=== PATIENT | female | born 1985 | race Caucasian/White ===

== ENCOUNTER → 2022-12-19 | Outpatient (CLI) | payer BC, SELFPAY ==
[2022-12-22 00:06] LABS: Chlamydia By Nucleic Acid AMP Negative (Negative)
[2022-12-22 17:25] LABS: Gonococcus By Nucleic Acid AMP Negative (Negative)
== END | disposition home or self-care (01) ==
PROVIDERS: Visit Provider Obstetrics & Gynecology
DX: Z34.90 Encounter for supervision of normal pregnancy, unspecified, unspecified trimester (principal)
CPT/HCPCS: 87086; 87491; 87591

== ENCOUNTER → 2022-12-26 | Outpatient (CLI) | payer BC, SELFPAY ==
[2022-12-26 11:11] LABS: Absolute Lymphocyte Count 2.33 X10^3/uL (0.83-4.51); Absolute Neutrophil Count 5.6 X10^3/uL (2.0-7.7); Basophil# 0.04 X10^3/uL; Basophil% 0.5 % (0-1); Eosinophil# 0.07 X10^3/uL; Eosinophils% 0.8 % (0-5); Hematocrit 39.4 % (37-47); Hemoglobin 13.3 g/dL (12.0-15.0); Lymphocyte # 2.33 X10^3/ul (0.83-4.51); Lymphocyte % 26.8 % (19-41); Mean Corp Hgb Conc 33.8 g/dL (32-36); Mean Corpuscular Volume 91.8 fL (81-99); Mean Platelet Vol. 9.5 fl (6.2-12.0); Monocyte# 0.63 X10^3/uL; Monocyte% 7.2 % (0-10); NRBC Flagged by Analyzer 0 % (0-5); Neutrophil # 5.58 X10^3/uL (2.7-7.7); Platelet Count 285 K/mm3 (150-450); RBC Distribution Width CV 12.7 % (11.6-14.6); RBC Distribution Width SD 42.3 fl (35.1-43.9); Red Blood Count 4.29 M/mm3 (4.2-5.4); White Blood Count 8.7 K/mm3 (4.4-11.0)
[2022-12-26 12:16] LABS: HIV - WCH Non-Reactive (Nonreactive); Hepatitis B Surface Antigen Non-Reactive (Nonreactive); Hepatitis C Antibody Non-Reactive (Nonreactive); Rubella IgG Reactive (Nonreactive); Syphilis Antibodies Non-reactive
== END | disposition home or self-care (01) ==
LOC: PAVLAB 10:28
PROVIDERS: Referring Provider Obstetrics & Gynecology; Visit Provider Obstetrics & Gynecology
DX: Z34.90 Encounter for supervision of normal pregnancy, unspecified, unspecified trimester (principal)
CPT/HCPCS: 36415; 85025; 86703; 86762; 86780; 86803; 86850; 86900; 86901; 87340

== ENCOUNTER → 2023-04-10 | Outpatient (CLI) | payer BC, SELFPAY ==
[2023-04-10 08:55] LABS: Absolute Lymphocyte Count 1.72 X10^3/uL (0.83-4.51); Absolute Neutrophil Count 6.8 X10^3/uL (2.0-7.7); Basophil# 0.06 X10^3/uL; Basophil% 0.6 % (0-1); Eosinophil# 0.12 X10^3/uL; Eosinophils% 1.3 % (0-5); Hematocrit 36.7 % (37-47); Hemoglobin 12.2 g/dL (12.0-15.0); Lymphocyte # 1.72 X10^3/ul (0.83-4.51); Lymphocyte % 18.2 % (19-41); Mean Corp Hgb Conc 33.2 g/dL (32-36); Mean Corpuscular Hgb 31.6 pg (27.0-32.0); Mean Corpuscular Volume 95.1 fL (81-99); Mean Platelet Vol. 9.1 fl (6.2-12.0); Monocyte% 6.3 % (0-10); NRBC Flagged by Analyzer 0 % (0-5); Neutrophil # 6.75 X10^3/uL (2.7-7.7); Neutrophil % 71.4 % (47-70); Platelet Count 239 K/mm3 (150-450); RBC Distribution Width CV 12.6 % (11.6-14.6); RBC Distribution Width SD 43.1 fl (35.1-43.9); Red Blood Count 3.86 M/mm3 (4.2-5.4); White Blood Count 9.5 K/mm3 (4.4-11.0)
[2023-04-10 09:07] LABS: Glucose Challenge Gest 1H 50g 143 mg/dL (70-140)
[2023-04-10 09:50] LABS: HIV - WCH Non-Reactive (Nonreactive); Syphilis Antibodies Non-reactive
== END | disposition home or self-care (01) ==
LOC: PAVLAB 08:34
PROVIDERS: Referring Provider Registered Nurse; Visit Provider Registered Nurse
DX: O09.90 Supervision of high risk pregnancy, unspecified, unspecified trimester (principal); Z13.1 Encounter for screening for diabetes mellitus; Z3A.00 Weeks of gestation of pregnancy not specified
CPT/HCPCS: 36415; 82950; 85025; 86703; 86780

== ENCOUNTER → 2023-04-13 | Outpatient (CLI) | payer BC, SELFPAY ==
[2023-04-13 08:08] LABS: Glucose GTT-Gestation. Fasting 84 mg/dL (<105)
[2023-04-13 08:52] LABS: Glucose GTT-Gestational 1 Hr 161 mg/dL (<190)
[2023-04-13 09:55] LABS: Glucose GTT-Gestational 2 Hr 127 mg/dL (<165)
[2023-04-13 11:36] LABS: Glucose GTT-Gestational 3 Hr 127 L (<145)
== END | disposition home or self-care (01) ==
LOC: LAB 07:13
PROVIDERS: Referring Provider Registered Nurse; Visit Provider Registered Nurse
DX: Z13.1 Encounter for screening for diabetes mellitus (principal)
CPT/HCPCS: 36415; 82951; 82952

== ENCOUNTER → 2023-05-30 | Outpatient (CLI) | payer BC, SELFPAY ==
--- NOTE | 2023-05-30 10:50 | US_ITS ---
EXAM: US , LIMITED CLINICAL INDICATION: growth TECHNIQUE: Real-time limited ultrasound of the maternal uterus with image documentation. COMPARISON: No relevant prior studies available. FINDINGS: FETUS: Single live intrauterine . GESTATIONAL AGE: Gestational age by ultrasound: 32 weeks 5 days, MELISSA 07/20/2023. Gestational age by LMP: 33 weeks 1 day, MELISSA 07/17/2023. EFW: Estimated weight: 2202 g, 51st percentile. BPD: 8.3 cm, 33 weeks 3 days. HC: 29.8 cm, 33 weeks 0 days. AC: 29.6 cm, 33 weeks 4 days. FL: 6.4 cm, 32 weeks 6 days. POSITION: Cephalic position. HEART RATE: heart rate: 136 bpm. PLACENTA: The placenta is anterior with no previa or other abnormality. AMNIOTIC FLUID: REENA measures 15 cm, within normal limits. CERVIX: Cervix measures 4 cm in length. US/OB Limited With Biometrics IMPRESSION: Single live intrauterine measuring 32 weeks 5 days with no acute abnormality identified. Electronically Signed: Gregg Thapa MD at 2:31 EDT ,
--- NOTE | 2023-06-22 18:59 | US_ITS ---
STUDY: SECOND AND THIRD TRIMESTER OBSTETRICAL ULTRASOUND - LIMITED REASON FOR EXAM: Female, 37 years old GROWTH, REENA PRIOR ULTRASOUND: May 30, 2023. TECHNIQUE: Transabdominal pelvic ultrasound. TECHNICAL QUALITY: Adequate. FINDINGS: There is a single intrauterine fetus. The fetus is in a cephalic presentation. There is demonstrated cardiac activity with a heart rate of 145 bpm. There is a normal amniotic fluid volume. The largest amniotic fluid pocket measures 4.8 cm. The amniotic fluid index (REENA) is 13.8 cm. The placenta is anterior. There are Grade 2 placental changes. The cervix measures 6.5 cm in length. BIOMETRY: BPD: 8.9 cm: 36 weeks, 0 days HC: 31.82: 35 weeks, 6 days AC: 32.98: 36 weeks, 6 days FL: 7.02: 36 weeks, 0 days Age by LMP: 35 weeks, 6 days. MELISSA by LMP: 07/21/2023. age by current US: 36 weeks, 0 days. MELISSA by current US: 07/20/2023. Estimated weight: 2987 grams, +/- 448 grams, 71 percentile. US/OB Limited With Biometrics IMPRESSION: Single live intrauterine gestation as above. Electronically Signed: Kevin Byrnes MD at 21:12 EDT ,
== END | disposition home or self-care (01) ==
LOC: US 10:48
PROVIDERS: Referring Provider Obstetrics & Gynecology; Visit Provider Obstetrics & Gynecology
DX: O99.810 Abnormal glucose complicating pregnancy (principal); Z3A.00 Weeks of gestation of pregnancy not specified
CPT/HCPCS: 76816

== ENCOUNTER → 2023-06-22 | Outpatient (CLI) | payer BC, SELFPAY | END | disposition home or self-care (01) | LOC: US 07-05 11:45 | PROVIDERS: Referring Provider Obstetrics & Gynecology; Visit Provider Obstetrics & Gynecology | DX: D64.89 Other specified anemias (principal) | CPT/HCPCS: 76816 ==

== ENCOUNTER → 2023-06-28 | Outpatient (CLI) | payer BC, SELFPAY | END | disposition home or self-care (01) | LOC: LABSPEC 10:33 | PROVIDERS: Referring Provider Obstetrics & Gynecology; Visit Provider Obstetrics & Gynecology | DX: O09.90 Supervision of high risk pregnancy, unspecified, unspecified trimester (principal); Z3A.00 Weeks of gestation of pregnancy not specified | CPT/HCPCS: 87081 ==

== ENCOUNTER 2023-07-05 10:00 | Outpatient (CLI) | payer BC, SELFPAY ==
[2023-07-05] VITALS (7 sets, daily range): BP systolic 119–147; BP diastolic 67–77; PULSE 84–101; TEMP 37.4; O2SAT 98; BMI 33.5
[2023-07-05 10:44] LABS: Hematocrit 37.3 % (37-47); Hemoglobin 12.3 g/dL (12.0-15.0); Mean Corpuscular Hgb 30.1 pg (27.0-32.0); Mean Corpuscular Volume 91.4 fL (81-99); Mean Platelet Vol. 9.9 fl (6.2-12.0); Platelet Count 235 K/mm3 (150-450); RBC Distribution Width SD 42.9 fl (35.1-43.9); Red Blood Count 4.08 M/mm3 (4.2-5.4); White Blood Count 10.1 K/mm3 (4.4-11.0)
[2023-07-05 10:58] LABS: Protein, Urine (Random) 7.2 mg/dL (<11.9); Protein:Creat Ratio 149 mg/g CRE (0-200)
[2023-07-05 11:10] LABS: AST(SGOT) 15 U/L (15-37); Alanine Aminotransfer ALT/SGPT 12 U/L (13-56); Creatinine, Serum 0.44 mg/dL (0.55-1.02); EST Glomerular Filtration Rate 171 mL/min (>60); Est Glom Filt Rate - Afr Amer 207 mL/min (>60); Estimated Creatinine Clearance 146.22 ml/min; Uric Acid 3.8 mg/dL (2.6-6.0)
--- NOTE | 2023-07-05 21:28 | OB.TRI.PN_ITS ---
Progress Notes Date of Service: 07/05/23 Progress Note: Patient presents for triage evaluation secondary to elevated bps in the office FHT: 140 Moderate variability reactive no decelerations category I tracing [place]: no regular Contractions Assessment and plan: elevate dbps but repeats WNL, labs WNL Reactive NST, reassuring maternal and status patient discharged to home to follow-up as scheduled. See problem list details for additional plan information. Laboratory Studies: Laboratory Tests 07/05/23 07/05/23 Range/Units 10:35 10:10 WBC 10.1 (4.4-11.0) K/mm3 RBC 4.08 L (4.2-5.4) M/mm3 Hgb 12.3 (12.0-15.0) g/dL Hct 37.3 (37-47) % MCV 91.4 (81-99) fL MCH 30.1 (27.0-32.0) pg MCHC 33.0 (32-36) g/dL RDW Std Deviation 42.9 (35.1-43.9) fl RDW Coeff of Mckenzie 13.0 (11.6-14.6) % Plt Count 235 (150-450) K/mm3 MPV 9.9 (6.2-12.0) fl Creatinine 0.44 L (0.55-1.02) mg/dL Estim Creat Clear Calc 146.22 ml/min Est GFR (MDRD) Af Amer 207 (>60) mL/min Est GFR (MDRD) Non-Af 171 (>60) mL/min Uric Acid 3.8 (2.6-6.0) mg/dL AST 15 (15-37) U/L ALT 12 L (13-56) U/L U Random Total Protein 7.2 (<11.9) mg/dL Urine Creatinine 48.30 (NO RANGE EST.) mg/dL Protein/Creatinin Ratio 149 (0-200) mg/g CRE Charges/Coding Procedures Urinary/Genital 52xxx-59xxx: 61813-16 non-stress test Interp
== END 2023-07-05 11:50 | disposition home or self-care (01) ==
LOC: WPOUT 10:06 → WP 10:06
PROVIDERS: Referring Provider Obstetrics & Gynecology; Visit Provider Obstetrics & Gynecology
DX: O26.899 Other specified pregnancy related conditions, unspecified trimester (principal); R03.0 Elevated blood-pressure reading, without diagnosis of hypertension; Z3A.00 Weeks of gestation of pregnancy not specified
CPT/HCPCS: 36415; 59025; 59050; 82565; 82570; 84156; 84450; 84460; 84550; 85027; 99221; G0378

== ENCOUNTER 2023-07-17 05:29 | Inpatient (IN) | payer BC, SELFPAY ==
[2023-07-17] VITALS (18 sets, daily range): BP systolic 101–138; BP diastolic 56–83; PULSE 74–117; RESP 12–16; TEMP 36.4–37.4; O2SAT 95–100; BMI 33.3
[2023-07-17] MEDS: Lactated Ringers 1,000 ML 999 ML IV (06:00)
[2023-07-17 06:11] LABS: Absolute Lymphocyte Count 2.25 X10^3/uL (0.83-4.51); Basophil# 0.07 X10^3/uL; Basophil% 0.8 % (0-1); Eosinophil# 0.09 X10^3/uL; Hematocrit 37.4 % (37-47); Hemoglobin 12.4 g/dL (12.0-15.0); Lymphocyte # 2.25 X10^3/ul (0.83-4.51); Lymphocyte % 24.4 % (19-41); Mean Corp Hgb Conc 33.2 g/dL (32-36); Mean Corpuscular Hgb 30.3 pg (27.0-32.0); Mean Corpuscular Volume 91.4 fL (81-99); Mean Platelet Vol. 10.2 fl (6.2-12.0); Monocyte% 6.5 % (0-10); NRBC Flagged by Analyzer 0 % (0-5); Neutrophil # 6.03 X10^3/uL (2.7-7.7); Neutrophil % 65.5 % (47-70); Platelet Count 229 K/mm3 (150-450); RBC Distribution Width CV 13.3 % (11.6-14.6); RBC Distribution Width SD 43.8 fl (35.1-43.9); Red Blood Count 4.09 M/mm3 (4.2-5.4); White Blood Count 9.2 K/mm3 (4.4-11.0)
[2023-07-17] MEDS: Acetaminophen 500 MG Tablet 1000 MG PO ×3 (06:13→18:08)
[2023-07-17] MEDS: Lactated Ringers 1,000 ML 150 ML IV (07:04)
[2023-07-17] MEDS: Sodium Citrate/Citric Acid 30 ML UDC PO (07:09)
--- NOTE | 2023-07-17 07:16 | HP.PCM.OB_ITS ---
HPI - General General Date of Admission: 07/17/23 HPI Narrative MONISHA FRASER, is a 37 y/o @ 39 weeks 3 days who presents to L&D for a scheduled repeat section. Maternal Data Information MELISSA Calculator Estimated Delivery Date Method Current WG Current Estimate 07/21/23 LMP (Certain) 39w 3d Other Estimates 07/21/23 Ultrasound #1 39w 3d PFSH PFSH Medical History Dysmenorrhea Family history of breast cancer Menorrhagia with regular cycle Home Medications multivitamin no.47-iron fum 27 mg-folate no.1 1 mg-dha 300 mg capsule (PNV-DHA) 1 cap PO DAILY 12/12/22 [History Last Taken 07/16/23] Allergy/AdvReac Type Severity Reaction Status Date / Time No Known Allergies Allergy Verified 07/17/23 05:31 Family History Grandmother Breast cancer Aunt Breast cancer Surgical History Hx of breast augmentation S/P Social History adopted: No household members: spouse and children number of children: 3 current occupation: [employer] pets and animals: Yes pets and animals: dog(s) history of recent travel: Yes ([place]) out of state: Yes out of country: No sexually active: Yes Smoking Status: Former smoker quit date: 11/09/22 alcohol intake: never substance use type: does not use well-balanced diet: daily or most days caffeine: No eating out: 1-3 times/week during the past year weight has: increased > 10 lbs what type of physical activity do you participate in: none florentino/rastafari: [employer]ab[employer]ist seatbelt use: always do you feel safe at home: Yes additional social history: - Walt History 4 Elective abortions Hx Para 3 Spontaneous abortions Hx # Term Pregnancies Ectopic pregnancies Hx # Pregnancies Multiple births # of living children 3 Past Pregnancies Del. Date Name GA/Weeks Outcome Route Bth Weight Gen Labor Lgth Anesthesia Del Locatn Provider FOB 09/11/07 Sunny 06/04/11 Reena 06/27/19 Kemi Visit Details Expected Delivery Route/Plan LTCS Labor Preferences- CB/BF classes: no labor support person: Walt labor intervention preferences: [] pain management options preferred: LTCS cut cord/dad catch: [] : yes PP control planned: discussed discussed possible routes of delivery and associated risks: [] special requests: [] Plans Covid status: unvaccinated Flu vaccine: uvaccinated Tdap vaccine: declines Rhogam: NA LARC form signed: yes Problem list reviewed and updated with the most current plan of care details and appropriate orders placed. Relevant counseling for the gestational age provided. Continue routine care and follow up unless otherwise noted in visit notes/problem list details OB Flowsheet Initial Weight: Not Recorded Date -?-?-?-?-?-?-?-?-?-?-?-?- EGA Weight BP Urine Prot -?-?-?-?-?-?-?-?-?-?-?-?- Glucose FHR FuHt Pres Dilation -?-?-?-?-?-?-?-?-?-?-?-?- Effaced St Visit Note 12/19/22 -?-?-?-?-?-?-?-?-?-?-?-?- 9w 3d 145 lb 4 oz 143/86 -?-?-?-?-?-?-?-?-?-?-?-?- 163 -?-?-?-?-?-?-?-?-?-?-?-?- JV- single live iup measuring 9 weeks 3d and consistent with LMP. declines NIPT 01/17/23 -?-?-?-?-?-?-?-?-?-?-?-?- 13w 4d 148 lb 4 oz 135/90 Nega tive -?-?-?-?-?-?-?-?-?-?-?-?- Negative 156 -?-?-?-?-?-?-?-?-?-?-?-?- JV- interval cesilia wth noted. pt states that she did not know over 35 puts her at increased risks in . She is tearful today and states that she does not know what to do about genetic testing. She is looking up pictures of NT on line often and stressing out. She will call with her decision for testing. otherwise will have 18 week growth scan with MFM. 02/14/23 -?-?-?-?-?-?-?-?-?-?-?-?- 17w 4d 155 lb 4 oz 112/70 Nega tive -?-?-?-?-?-?-?-?-?-?-?-?- Negative 141 -?-?-?-?-?-?-?-?-?-?-?-?- -No VB. Doing well. Normal PN labs. US with MFM 02/2203/14/23 -?-?-?-?-?-?-?-?-?-?-?-?- 21w 4d 165 lb 118/80 Negative -?-?-?-?-?-?-?-?-?-?-?-?- Negative 138 -?-?-?-?-?-?-?-?-?-?-?-?- LC- no vb/crampi ng.normal anatomy scan. no concerns. 04/10/23 -?-?-?-?-?-?-?-?-?-?-?-?- 25w 3d 173 lb 107/72 Negative -?-?-?-?-?-?-?-?-?-?-?-?- Negative 141 26 -?-?-?-?-?-?-?-?-?-?-?--?- -No VB, LOF. G ood FM. 05/10/23 -?-?-?-?-?-?-?-?-?-?-?-?- 29w 5d 178 lb 129/81 Negative -?-?-?-?-?-?-?-?-?-?-?-?- Negative 125 30 -?-?-?-?-?-?-?-?-?-?-?-?- JV- no lof, vagi nal bleeding, or dec fm. JV- no lof, vaginal bleeding , or dec fm. pt is requesting to see the baby next visit due to nervousness. plan to check position and fluid next visit. JV- request for rpt section sent for 40 weeks. no lof, vaginal bleeding, or dec fm. pt is requesting to see the baby next visit due to nervousness. plan to check position and fluid next visit. 05/24/23 -?-?-?-?-?-?-?-?-?-?-?-?- 31w 5d 181 lb 131/84 Negative -?-?-?-?-?-?-?-?-?-?-?-?- Negative 135 32 -?-?-?-?-?-?-?-?-?-?-?-?- SM- no vb lof go od fm no regualr 06/08/23 -?-?-?-?-?-?-?-?-?-?-?-?- 33w 6d 184 lb 120/81 Negative -?-?--?-?-?-?-?-?-?-?-?-?- Negative 123 36 -?-?-?-?-?-?-?-?-?-?-?-?- JV- no lof, vagi nal bleeding,or dec fm. will think about tubal at time of section. 06/21/23 -?-?-?-?-?-?-?-?-?-?-?-?- 35w 5d 187 lb 2 oz 114/72 Nega tive -?-?-?-?-?-?-?-?-?-?-?-?- Negative 140 38 -?-?-?-?-?-?-?-?-?-?-?-?- JV- no lof, vagi nal bleeding, or dec fm. plan for REENA and gbs next visit. if poly will recommend 39 week section instead of planned 40 week delivery. JV- no lof, vaginal bleeding , or dec fm. plan for REENA and gbs next visit. 06/28/23 -?-?-?-?-?-?-?-?-?-?-?-?- 36w 5d 190 lb 120/78 Negative -?-?-?-?-?-?-?-?-?-?-?-?- Negative 156 37 Cephalic -?-?-?-?-?-?-?-?-?-?-?-?- JV- JV- ultrasound was normal wi th REENA 14, growth 71st%. gbs collected today 07/05/23 -?-?-?-?-?-?-?-?-?-?-?-?- 37w 5d 191 lb 2 oz 142/82 Nega tive -?-?-?-?-?-?-?-?-?-?-?-?- Negative 140 38 Cephalic -?-?-?-?-?-?-?-?-?-?-?-?- SM- no vb lof go od fm co pelvic pressure and cramping, burning vaginally. feels tired. to l and d for evaluation 07/10/23 -?-?-?-?-?-?-?-?-?-?-?-?- 38w 3d 190 lb 6 oz 129/79 Nega tive -?-?-?-?-?-?-?-?-?-?-?-?- Negative 142 39 Cephalic -?-?-?-?-?-?-?-?-?-?-?-?- JV- no lof, vagi nal bleeding,or dec fm. pt complains of shortness of breath on exertion. We discussed Air hunger of she appears anxious but denies this. She denies chest pain or visual changes. consent for surgery signed today. ROS Constitutional Constitutional: Denies change in weight, fatigue, fever(s), headache(s), poor appetite or weakness Eyes Eyes: Denies blurry vision, change in vision, seeing flashes or spots in vision ENT HEENT: Denies dizziness, headache(s), loss taste/smell or sore throat Cardiovascular Cardiovascular: Denies chest pain, dizziness, dyspnea, irregular heart rhythm, leg edema, palpitations, rapid heart rate or vomiting Respiratory/Chest Respiratory/Chest: Denies chest tightness, cough, dyspnea or breast pain Gastrointestinal Gastrointestinal: Denies abdominal pain, anorexia, constipation, cramping, diarrhea, hemorrhoids, vomiting or weight changes Genitourinary Genitourinary: Denies dysuria, flank pain, genital lesions, genital pain, urinary frequency or urinary urgency Musculoskeletal Musculoskeletal: Denies back pain, difficulty walking, joint pain, limited range of motion, muscle cramps or numbness Integumentary Integumentary: Denies lesions or unusual bruising Neurologic Neurologic: Denies abnormal movements, abnormal speech, dizziness, numbness, seizure-like activity or syncope Psychiatric Psychiatric: Denies anxiety, behavioral changes, change in appetite, change in libido, cognitive impairment, confusion, depression, difficulty concentrating, hallucinations or suicidal thoughts Endocrine Endocrinology: Denies excessive sweating, polydipsia or polyuria Hematologic/Lymphatic Hematologic/Lymphatic: Denies easy bleeding, easy bruising or lymphadenopathy Allergic/Immunologic Allergic/Immunologic: Denies itchy eyes, lip swelling, seasonal rhinorrhea, rhinitis, throat swelling, tongue swelling, eczemia, wheezing or asthma Vital Signs Vital Signs Vital Signs: 07/17/23 05:40 07/17/23 05:40 07/17/23 05:40 Temperature Temperature Source Pulse Rate 117 H Respiratory Rate Blood Pressure 138/83 H Blood Pressure Mean BP Systolic 138 BP Diastolic 83 Blood Pressure Source Blood Pressure Position Blood Pressure Location Pulse Ox 98 Oxygen Delivery Method 07/17/23 05:41 07/17/23 05:41 07/17/23 05:41 Temperature 98.5 F Temperature Source Temporal Pulse Rate Respiratory Rate Blood Pressure Blood Pressure Mean BP Systolic BP Diastolic Blood Pressure Source Blood Pressure Position Blood Pressure Location Pulse Ox 99 Oxygen Delivery Method 07/17/23 06:10 Temperature 98.5 F Temperature Source Temporal Pulse Rate 117 H Respiratory Rate 16 Blood Pressure 138/83 H Blood Pressure Mean 101 BP Systolic BP Diastolic Blood Pressure Source Monitor Blood Pressure Position Semi-Fowlers Blood Pressure Location Left Arm Pulse Ox 99 Oxygen Delivery Method Room Air Weight Weight: 188 lb 4.396 oz Body Mass Index (BMI) 33.3 Physical Exam Const alert, oriented x3, no apparent distress and healthy appearing General Appearance: cooperative; Negative for anxious HEENT normocephalic Face and Sinus: normal facial exam Eyes EOMs intact bilaterally and no scleral icterus General Eye: normal appearance of both eyes Neck full ROM and supple Lymph Lymphatic: no lymphadenopathy noted Chest Chest: abnormal inspection of the chest Resp normal respiratory effort Effort and Inspection: able to speak in complete sentences Cardio regular rate GI soft to palpation and non-tender Inspection: gravid Palpation: soft; Negative for tender Back/Spine no CVA tenderness Extremity normal to inspection, full ROM and no clubbing, cyanosis or edema General Extremity: Negative for calf tenderness or edema Skin Lesions: no lesions Rashes: no rashes Psych mental status grossly normal Labs Labs Labs: Blood Type AB POSITIVE Antibody Screen NEGATIVE Hct 37.4 % (37-47) Hgb 12.4 g/dL (12.0-15.0) Pap Smear Negative Obstetrics US Syphilis Total Ab Non-reactive Rubella IgG Antibody Reactive (Nonreactive) Hep Bs Antigen Non-Reactive (Nonreactive) Chlamydia DNA (JANESSA) Negative (Negative) Neisseria gonorrhoeae DNA (JANESSA) Negative (Negative) HIV 1&2 Antibody Non-Reactive (Nonreactive) Glucose 1 Hr 50 gm 143 mg/dL (70-140) H Assessment & Plan (1) Abnormal glucose level: COMMENT: 3 HR GTT- NORMAL (2) ADHD (attention deficit hyperactivity disorder): COMMENT: No medication while (3) Advanced maternal age (AMA) in : COMMENT: ultrasound ordered (4) Supervision of high risk , antepartum: COMMENT: PRR , MELISSA 07/21/23, PC Reena Correa Kinley, Walt (5) : QUALIFIERS: Weeks of gestation: 38 weeks Qualified Code(s): Z3A.38 - 38 weeks gestation of COMMENT: GBS neg, declines genetic & carrier testing, anatomy nl (6) History of 3 sections: COMMENT: Plans RCS discussed and plan for 39 weeks. RLTCS scheduled for 07/17 @ 7:30 with KASIE, / Pt does not want tubal ligation, please do not ask again.
--- NOTE | 2023-07-17 07:18 | DCINST_ITS ---
Discharge Instructions Diet Discharge Diet: No restrictions Activity Discharge Activity: May Not Drive (for 2 weeks or while taking narcotic pain medications.), May Shower and May Take a Tub Bath (in 7 days.) May resume sexual activity in: 4-6 weeks Weight Bearing Status: Full weight bearing Lifting Restrictions: 20 pounds Dressing / Incision Call your doctor if your incision/area has: Continuous Slow Oozing, Sudden Increased Bleeding, Increased Pain/ Swelling, Increased Redness and Foul Smelling Discharge Call your doctor if you observe: Fever of 101 or Higher and Using more than 1 pad per hour Suture Line Care: Avoid Pulling/Pushing and Avoid Pinching/Bending Cleanse incision/area with: Soap & Water and Keep Dressing Clean & Dry Follow Up Care Please Follow Up With: Kristi Wagner DO When: Call [phone] to make an appointment for an incision check in 1-2 weeks. Test Results: Test results from this visit will be discussed in further detail at your follow- up appointment, if applicable. Discharge Plan Admission Admit Date/Time: 07/17/23 05:29 Primary Reason for Your Visit: section Attending Provider: Kristi Wagner Primary Care Provider: Ward Physician,Tricia Primary Discharge Orders/Prescriptions Prescriptions: New naproxen 500 mg tablet 500 mg PO BID PRN (Reason: pain) Qty: 30 0RF No Action PNV-DHA 27 mg iron-1 mg -300 mg capsule 1 cap PO DAILY Referrals / Follow Up: Care Physician,No Primary [Primary Care Provider] - Disposition Disposition (needs filled in before D/C Order can be placed): Home, Self Care
[2023-07-17] MEDS: Cefazolin 2 GM in 0.9% Normal Saline (100mL Bag) 100 ML IV (07:28)
--- NOTE | 2023-07-17 08:21 | EX.PCM.OBRPT ---
Assessment & Plan (1) Abnormal glucose level: COMMENT: 3 HR GTT- NORMAL (2) ADHD (attention deficit hyperactivity disorder): COMMENT: No medication while (3) Advanced maternal age (AMA) in : COMMENT: ultrasound ordered (4) Supervision of high risk , antepartum: COMMENT: PRR , MELISSA 07/21/23, MITRA SunnyReena barton Kemi, Walt (5) : QUALIFIERS: Weeks of gestation: 38 weeks Qualified Code(s): Z3A.38 - 38 weeks gestation of COMMENT: GBS neg, declines genetic & carrier testing, anatomy nl (6) History of 3 sections: COMMENT: Plans RCS discussed and plan for 39 weeks. RLTCS scheduled for 07/17 @ 7:30 with JV, 06/08 Pt does not want tubal ligation, please do not ask again. Maternal Data Information MELISSA Calculator Estimated Delivery Date Method Current WG Current Estimate 07/21/23 LMP (Certain) 39w 3d Other Estimates 07/21/23 Ultrasound #1 39w 3d Final MELISSA: 07/21/23 Final MELISSA Source: LMP Gestational age: 39 weeks 3 days Details Operative Information Date of Procedure: 07/17/23 Pre-Operative Diagnosis: 37 y/o G43@ 39 weeks 3 days, prior sections x 3, for elective repeat section Post-Operative Diagnosis: 37 y/o G43@ 39 weeks 3 days, prior sections x 3, for elective repeat section Indications for : Repeat Elective Classification: Scheduled Procedure Type: low transverse supervisor chassis assembly #1: Jhonatan Rivero supervisor chassis assembly #2: Alina Faye Type of Anesthesia: Spinal Antibiotic Given: Ancef 2 grams IV x1 Estimated Blood Loss: 700cc Findings Description of Procedure: The patient is a 37 y/o who presented for repeat . Spinal anesthesia was placed without difficulty. De La Paz catheter was placed. The patient was placed in the dorsal supine position with leftward tilt. Patient was prepped and draped in the normal sterile fashion. Pfannenstiel skin incision was made with the scalpel and carried through to the underlying layer of fascia with the scalpel. Fascia was nicked in the midline and the incision extended laterally. The rectus bellies were dissected off superiorly and inferiorly with out complication both sharply and bluntly. The peritoneum was entered digitally. The incision was stretched and a low transverse uterine incision was made with the scalpel. The infant's head was delivered atraumatically followed by the anterior and posterior shoulders without complication the rest of the infant delivered. The cord was clamped and cut and the was handed off to awaiting nurse. The placenta was delivered spontaneously immediately following and was noted to be intact and have a three-vessel cord. The uterus was exteriorized cleared of all clots and debris, and the incision was closed in a double layer closure using #1 vicryl and #1 Monocryl. The ovaries and fallopian tubes were noted to be within normal limits. The uterus was returned to the maternal abdomen and gutters were cleared of all clots and debris. The peritoneum was closed with 3-0 Monocryl in a running fashion. Fascia was closed with 0 PDS in a running fashion. Subcutaneous tissue was copiously irrigated and the skin was closed with 3-0 Monocryl in a subcuticular fashion. Mepilex dressing was applied without complication. Patient was taken to recovery in stable condition. It was discussed with the patient that based on the clinical information obtained during this encounter, combined with her history, at this time I would recommend repeat setion for future deliveries if further pregnancies are desired. Presentation: Positive for Vertex Amniotic Fluid Description: Clear Placental Delivery Description: Manual Removal Placenta Disposition: [facility] Cord Vessel Description: 3 Vessels Cord Entanglement: None Infant A Gender: Male (1 minute): 8 (5 minute): 9 Delayed Cord Clamping: Yes Complications Risks of Surgery Discussed w/Patient: Bleeding, Anesthesia Risks, Infection, Need for Future C-Sections and Injury to surrounding structure(s) including bowel and bladder Complications: none Admit VTE Documentation VTE Present on Admission: No VTE Mechan Device Prophylaxis: SCD's VTE Pharm Prophylaxis Ordered: No Multi Select Codes Urinary/Genital Urinary/Genital CPT Codes: 29722 [facility]
[2023-07-17 08:53] LABS: Syphilis Antibodies Non-reactive
[2023-07-17] MEDS: Ketorolac 30 MG/ML Syringe IV ×3 (08:53→20:26)
[2023-07-17] MEDS: Oxytocin 15 Units/NS 250ml 15 UNITS/250 ML IV.SOLN 83 UNITS IV (08:53)
[2023-07-17] MEDS: Lactated Ringers 1,000 ML 100 ML IV (11:50)
[2023-07-17] MEDS: 0.9% Saline Lock 10 ML Syringe IV ×2 (14:47→20:27)
[2023-07-18] MEDS: Acetaminophen 500 MG Tablet 1000 MG PO ×2 (00:28→06:43)
[2023-07-18] MEDS: Ketorolac 30 MG/ML Syringe IV (02:20)
[2023-07-18] MEDS: 0.9% Saline Lock 10 ML Syringe IV (02:20)
[2023-07-18 03:40] VITALS: BP 113/74; PULSE 71; RESP 16; TEMP 36.8; O2SAT 99
[2023-07-18] MEDS: SimETHICONE 80 MG Chewable Tablet PO (03:47)
[2023-07-18 05:39] LABS: Hemoglobin 10.4 g/dL (12.0-15.0); Mean Corp Hgb Conc 32.5 g/dL (32-36); Mean Corpuscular Hgb 30.4 pg (27.0-32.0); Mean Corpuscular Volume 93.6 fL (81-99); Mean Platelet Vol. 10.1 fl (6.2-12.0); Platelet Count 213 K/mm3 (150-450); RBC Distribution Width CV 13.4 % (11.6-14.6); RBC Distribution Width SD 45.4 fl (35.1-43.9); Red Blood Count 3.42 M/mm3 (4.2-5.4); White Blood Count 13.4 K/mm3 (4.4-11.0)
--- NOTE | 2023-07-18 07:45 | PCM.PN.OB ---
Subjective Subjective Patient doing well without complaints. Tolerating PO. Ambulating and voiding without difficulty. Feeding well. Denies chest pain, shortness of breath, calf pain/swelling, fevers, chills, lightheadedness. Objective Data Objective Data Vital Signs: Vital Signs Temp Pulse Resp BP Pulse Ox O2 Del Method 98.2 F 71 16 113/74 99 Room Air 07/18/23 03:40 07/18/23 03:40 07/18/23 03:40 07/18/23 03:40 07/18/23 03:40 07/18/23 03:40 Oxygen Delivery Method Room Air Weight: 188 lb 4.396 oz Body Mass Index (BMI) 33.3 Intake & Output: Intake and Output for Last 24 Hours 07/16/23 07/17/23 07/18/23 23:59 23:59 23:59 Intake Total 2626.67 / 2626.67 Output Total 2750 / 2750 Balance -123.33 / -123.33 Lab / Micro Data 07/18/23 05:30 Labs: Laboratory Results - last 24 hr 07/17/23 06:00: Syphilis Total Ab Non-reactive 07/18/23 05:30: WBC 13.4 H, RBC 3.42 L, Hgb 10.4 L, Hct 32.0 L, MCV 93.6, MCH 30.4, MCHC 32.5, RDW Std Deviation 45.4 H, RDW Coeff of Mckenzie 13.4, Plt Count 213, MPV 10.1 Physical Exam Const alert and oriented x3 HEENT normocephalic Eyes PERRL Neck full ROM Resp normal respiratory effort GI soft to palpation GI Narrative: FF below U. Dressing dry and intact Palpation: tender other (appropriately) Assessment & Plan (1) Delivery by section: COMMENT: 07/17/23 AYANTCRaegan-KASIE [place] PLAN: Plan s/p LTCS PPD # 1 1. routine post care 2. breast feeding- support given 3. rh positive 4. rubella immune 5. plans home today
[2023-07-18] MEDS: oxyCODONE 5 MG Tablet PO ×2 (08:05→12:38)
[2023-07-18 09:30] VITALS: BP 126/81; PULSE 76; RESP 16; TEMP 36.7
== END 2023-07-18 13:30 | disposition home or self-care (01) | DRG 788 ==
PROVIDERS: Admitting Provider Obstetrics & Gynecology; Referring Provider Obstetrics & Gynecology; Visit Provider Obstetrics & Gynecology
PROC: 10D00Z1 Extraction of Products of Conception, Low, Open Approach (ICD-10-PCS; CPT 59514; principal; 2023-07-17 07:15)
DX: O34.211 Maternal care for low transverse scar from previous cesarean delivery (principal); O99.814 Abnormal glucose complicating childbirth; Z37.0 Single live birth; Z87.891 Personal history of nicotine dependence; Z3A.39 39 weeks gestation of pregnancy; Z80.3 Family history of malignant neoplasm of breast
CPT/HCPCS: 59025; 59050; 85025; 85027; 86780; 86850; 86900; 86901; 99221; J7120; A4216; G0378; J2405

== ENCOUNTER → 2023-10-03 | Outpatient (CLI) | payer BC, SELFPAY ==
[2023-10-09 13:07] LABS: HPV APTIMA, High Risk Negative (Negative)
== END | disposition home or self-care (01) ==
LOC: LAB 11:32
PROVIDERS: Referring Provider Registered Nurse; Visit Provider Registered Nurse
DX: Z12.4 Encounter for screening for malignant neoplasm of cervix (principal)
CPT/HCPCS: 87624; 88175; G0145